=== PATIENT | male | born 1950 | race Asian ===

== ENCOUNTER 2020-04-09 14:58 | Observation (INO) | payer OTHER ==
[2020-04-09 15:25] VITALS: BMI 33.9
[2020-04-09] MEDS ORDERED: ASPIRIN 325 MG TABLET PO ONE (16:06)
[2020-04-09 16:09] LABS: BASO % 0.4 % (0-2.0); EOS % 0.3 % (0-4.5); HEMATOCRIT 42.3 % (35.4-49); HEMOGLOBIN 14.1 GM/dL (11.7-16.9); LYMPH % 13.5 % (8-40); MCH 28.7 pg (25.7-33.7); MCHC 33.4 g/dl (32.0-35.9); MEAN CELL VOLUME 85.8 fl (80-96); MEAN PLT VOLUME 9.6 fl (7.5-11.1); MONO % 6.9 % (3.8-10.2); NEUT % 78.9 % (42.8-82.8); PLATELET COUNT 290 K/MM3 (134-434); RBC 4.93 M/mm3 (4.00-5.60); RDW 13.8 % (11.9-15.9); WHITE BLOOD COUNT 11.2 K/mm3 (4.0-10.0)
[2020-04-09] MEDS ORDERED: ASPIRIN 81 MG CHEWABLE TABLETS ONE (16:15)
[2020-04-09 16:26] LABS: CHLORIDE 106 mmol/L (98-107); SODIUM 134 mmol/L (136-145)
[2020-04-09 16:29] LABS: ALBUMIN 3.7 g/dl (3.4-5.0); BLOOD UREA NITROGEN 18.5 mg/dL (7-18); CO2 25 mmol/L (21-32); GLUCOSE,RANDOM 81 mg/dL (74-106); MAGNESIUM 2.3 mg/dL (1.8-2.4)
[2020-04-09 16:32] LABS: CREATININE 1.3 mg/dL (0.55-1.3)
[2020-04-09 16:33] LABS: BILIRUBIN,TOTAL 0.6 mg/dL (0.2-1)
[2020-04-09 16:35] LABS: ALK PHOS 56 U/L (45-117); TOT PROT 8.4 g/dl (6.4-8.2)
[2020-04-09 16:37] LABS: N-TERMINAL BNP 70.6 pg/ml (5-125)
[2020-04-09 17:03] LABS: ANION GAP 3 MMOL/L (8-16); SGOT/AST 110 U/L (15-37); SGPT/ALT 52 U/L (13-61)
[2020-04-09 17:05] LABS: PH,URINE 6.5 (5.0-8.0); URINE APPEARANCE Clear; URINE BILIRUBIN Negative (NEGATIVE); URINE COLOR Yellow; URINE GLUCOSE (UA) Negative (NEGATIVE); URINE KETONE 1+ (NEGATIVE); URINE LEUK ESTERASE Negative (NEGATIVE); URINE NITRITE Negative (NEGATIVE); URINE PROTEIN Negative (NEGATIVE); URINE UROBILINOGEN 0.2 mg/dL (0.2-1.0)
[2020-04-09 17:19] LABS: POTASSIUM 9.5 mmol/L (3.5-5.1)
[2020-04-09] MEDS ORDERED: amLODIPine BESYLATE 5 MG TABLET (FP) PO ONE (17:41)
[2020-04-09] MEDS ORDERED: METOPROLOL TARTRATE 5 MG/5 ML VIAL IVPUSH ONE (17:42)
[2020-04-09] MEDS ORDERED: amLODIPine BESYLATE 5 MG TABLET (FP) ONE ×2 (17:59→22:18)
[2020-04-09] MEDS ORDERED: METOPROLOL TARTRATE 5 MG/5 ML VIAL ONE (18:00)
[2020-04-09 18:44] LABS: POTASSIUM 3.9 mmol/L (3.5-5.1)
[2020-04-09 18:49] LABS: BLOOD UREA NITROGEN 18.3 mg/dL (7-18); CALCIUM 9.4 mg/dL (8.5-10.1)
[2020-04-09 18:50] LABS: ALBUMIN 3.9 g/dl (3.4-5.0)
[2020-04-09 18:53] LABS: CREATININE 1.1 mg/dL (0.55-1.3)
[2020-04-09 18:54] LABS: BILIRUBIN,TOTAL 0.8 mg/dL (0.2-1); TOT PROT 7.6 g/dl (6.4-8.2)
[2020-04-09 19:07] LABS: HYALINE CASTS 0.12 /uL (0-3.1); URINE BACTERIA 817.1 /uL (0-1359); URINE RBC 6.4 /uL (0-23.9); URINE WBC 1.5 /uL (0-25.8)
[2020-04-09 20:11] LABS: CHLORIDE 104 mmol/L (98-107); POTASSIUM 3.8 mmol/L (3.5-5.1); SODIUM 138 mmol/L (136-145)
[2020-04-09 20:15] LABS: ANION GAP 6 MMOL/L (8-16); BLOOD UREA NITROGEN 17.5 mg/dL (7-18); CO2 28 mmol/L (21-32); GLUCOSE,RANDOM 90 mg/dL (74-106)
[2020-04-09 20:17] LABS: CREATININE 1.1 mg/dL (0.55-1.3); SGOT/AST 16 U/L (15-37); SGPT/ALT 34 U/L (13-61)
[2020-04-09 20:18] LABS: BILIRUBIN,TOTAL 0.5 mg/dL (0.2-1); TOT PROT 7.6 g/dl (6.4-8.2)
[2020-04-09 20:20] LABS: ALK PHOS 57 U/L (45-117)
[2020-04-09] MEDS ORDERED: amLODIPine BESYLATE 5 MG TABLET (FP) PO SCH (22:00)
[2020-04-10 05:49] VITALS: TEMP 98.7
[2020-04-10 08:25] LABS: BASO % 0.3 % (0-2.0); EOS % 0.9 % (0-4.5); HEMATOCRIT 45.5 % (35.4-49); HEMOGLOBIN 15.2 GM/dL (11.7-16.9); LYMPH % 19.6 % (8-40); MCH 28.9 pg (25.7-33.7); MCHC 33.4 g/dl (32.0-35.9); MEAN CELL VOLUME 86.6 fl (80-96); NEUT % 71.2 % (42.8-82.8); PLATELET COUNT 281 K/MM3 (134-434); RBC 5.25 M/mm3 (4.00-5.60); RDW 13.4 % (11.9-15.9); WHITE BLOOD COUNT 10.3 K/mm3 (4.0-10.0)
[2020-04-10] MEDS ORDERED: TAMSULOSIN HCL 0.4 MG CAP PO SCH (08:30)
[2020-04-10 08:53] LABS: POTASSIUM 3.9 mmol/L (3.5-5.1)
[2020-04-10 08:55] LABS: CALCIUM 9.3 mg/dL (8.5-10.1)
[2020-04-10 08:56] LABS: ALBUMIN 4.2 g/dl (3.4-5.0); BLOOD UREA NITROGEN 18.3 mg/dL (7-18)
[2020-04-10 08:58] LABS: MAGNESIUM 2.2 mg/dL (1.8-2.4)
[2020-04-10 08:59] LABS: CREATININE 1.2 mg/dL (0.55-1.3); PHOSPHOROUS 3.6 mg/dL (2.5-4.9)
[2020-04-10 09:01] LABS: BILIRUBIN,TOTAL 0.9 mg/dL (0.2-1); TOT PROT 7.9 g/dl (6.4-8.2)
[2020-04-10] MEDS ORDERED: LOSARTAN POTASSIUM 50 MG TABLET PO SCH (10:00)
[2020-04-10] MEDS ORDERED: BACITRACIN/POLYMYXIN B SULFATE 15 GM TUBE TP SCH (10:00)
[2020-04-10] MEDS ORDERED: ENOXAPARIN NA (PORCINE) 40 MG/0.4 ML DISP.SYRIN SQ SCH (10:00)
[2020-04-10] MEDS ORDERED: REGADENOSON 0.4 MG/5 ML PRE-FILLED SYRINGE IVPUSH ONE ×2 (10:15→10:32)
[2020-04-10 14:58] VITALS: BP 140/91; PULSE 99
== END 2020-04-10 16:00 | disposition home or self-care (01) ==
LOC: JER 14:58 → JERBED 16:01 → J6WEST-2 23:32
PROVIDERS: ATTEND Student in an Organized Health Care Education/Training Program
PROC: 3E023GC Introduction of Other Therapeutic Substance into Muscle, Percutaneous Approach (ICD-10-PCS; principal; 2020-04-09)
PROC: 3E033GC Introduction of Other Therapeutic Substance into Peripheral Vein, Percutaneous Approach (ICD-10-PCS; 2020-04-09)
DX: I11.0 Hypertensive heart disease with heart failure (principal); R07.9 Chest pain, unspecified; N40.0 Benign prostatic hyperplasia without lower urinary tract symptoms; Z88.0 Allergy status to penicillin; E66.9 Obesity, unspecified; Z68.33 Body mass index [BMI] 33.0-33.9, adult; I50.30 Unspecified diastolic (congestive) heart failure; Z29.9 Encounter for prophylactic measures, unspecified; Z79.01 Long term (current) use of anticoagulants; E78.5 Hyperlipidemia, unspecified
CPT/HCPCS: 36415; 71045-TC-FY; 78452-TC; 80053; 81003; 82550; 82553; 83735; 83880; 84100; 84484; 85025; 87086; 93005; 93010; 93017; 93306-TC; 96372; 96374; 99285-25; A9502; C9803; G0378; J2785; U0003

== ENCOUNTER 2021-11-04 01:13 | Emergency (ER) | payer OTHER ==
[2021-11-04 01:34] VITALS: BP 117/66; PULSE 108; RESP 20; TEMP 98.4; BMI 34.9
[2021-11-04 03:22] LABS: BASO % 0.3 % (0-2.0); EOS % 0.7 % (0-4.5); HEMATOCRIT 41.6 % (35.4-49); HEMOGLOBIN 14.1 GM/dL (11.7-16.9); LYMPH % 10.5 % (8-40); MCH 28.9 pg (25.7-33.7); MCHC 33.8 g/dl (32.0-35.9); MEAN CELL VOLUME 85.5 fl (80-96); MEAN PLT VOLUME 8.8 fl (7.5-11.1); MONO % 8.4 % (3.8-10.2); NEUT % 80.1 % (42.8-82.8); PH,URINE 6.5 (5.0-8.0); PLATELET COUNT 219 10^3/uL (134-434); RBC 4.87 M/mm3 (4.00-5.60); URINE APPEARANCE CLEAR; URINE BILIRUBIN NEGATIVE (NEGATIVE); URINE COLOR YELLOW; URINE GLUCOSE (UA) NEGATIVE (NEGATIVE); URINE KETONE NEGATIVE (NEGATIVE); URINE LEUK ESTERASE NEGATIVE (NEGATIVE); URINE NITRITE NEGATIVE (NEGATIVE); URINE PROTEIN NEGATIVE (NEGATIVE); URINE UROBILINOGEN 0.2 mg/dL (0.2-1.0); WHITE BLOOD COUNT 11.2 K/mm3 (4.0-10.0)
[2021-11-04 03:41] LABS: CALCIUM 9.4 mg/dL (8.5-10.1)
[2021-11-04 03:42] LABS: ALBUMIN 3.8 g/dl (3.4-5.0)
[2021-11-04 03:45] LABS: CREATININE 1.3 mg/dL (0.55-1.3)
[2021-11-04 03:46] LABS: BILIRUBIN,TOTAL 0.5 mg/dL (0.2-1); TOT PROT 7.2 g/dl (6.4-8.2)
== END 2021-11-04 04:20 | disposition home or self-care (01) ==
LOC: JER 01:13
DX: R33.9 Retention of urine, unspecified (principal)
CPT/HCPCS: 36415; 80053; 81003; 85025; 87086; 99283-25

== ENCOUNTER 2021-11-09 07:40 | Emergency (ER) | payer OTHER ==
[2021-11-09 08:22] VITALS: BMI 34.9
[2021-11-09 09:27] LABS: BASO % 0.3 % (0-2.0); EOS % 0.3 % (0-4.5); HEMATOCRIT 41.6 % (35.4-49); HEMOGLOBIN 14.1 GM/dL (11.7-16.9); LYMPH % 6.3 % (8-40); MCH 28.5 pg (25.7-33.7); MCHC 33.9 g/dl (32.0-35.9); MEAN PLT VOLUME 8.7 fl (7.5-11.1); MONO % 6.4 % (3.8-10.2); NEUT % 86.7 % (42.8-82.8); PLATELET COUNT 249 10^3/uL (134-434); RBC 4.95 M/mm3 (4.00-5.60); RDW 13.6 % (11.9-15.9); WHITE BLOOD COUNT 14.9 K/mm3 (4.0-10.0)
[2021-11-09 09:30] VITALS: RESP 16
[2021-11-09 09:55] LABS: CALCIUM 9.3 mg/dL (8.5-10.1)
[2021-11-09 09:59] LABS: CREATININE 1.2 mg/dL (0.55-1.3)
[2021-11-09 10:00] LABS: BILIRUBIN,TOTAL 0.8 mg/dL (0.2-1); TOT PROT 7.3 g/dl (6.4-8.2)
[2021-11-09] MEDS ORDERED: GENTAMICIN INJECTION 80 MG in DEXTROSE 5%-WATER - 250 ML IVPB SCH (11:45)
[2021-11-09] MEDS ORDERED: GENTAMICIN 80 MG PREMIXED IVPB 80 MG/100 ML BAG IVPB ONE (11:54)
[2021-11-09] MEDS ORDERED: GENTAMICIN 80 MG PREMIXED IVPB 80 MG/100 ML BAG IVPB SCH (12:08)
[2021-11-09 13:08] VITALS: BP 148/77; PULSE 84; TEMP 98.6
== END 2021-11-09 13:09 | disposition home or self-care (01) ==
LOC: JER 07:40
PROC: 3E033GC Introduction of Other Therapeutic Substance into Peripheral Vein, Percutaneous Approach (ICD-10-PCS; principal; 2021-11-09)
DX: T83.098A Other mechanical complication of other urinary catheter, initial encounter (principal)
CPT/HCPCS: 36415; 80053; 85025; 86850; 86900; 86901; 99284-25

== ENCOUNTER 2021-11-13 16:40 | Observation (INO) | payer OTHER ==
[2021-11-13 16:46] VITALS: BMI 35.7
[2021-11-13 18:13] LABS: BASO % 0.5 % (0-2.0); EOS % 1.5 % (0-4.5); HEMATOCRIT 40.5 % (35.4-49); HEMOGLOBIN 13.8 GM/dL (11.7-16.9); LYMPH % 16.7 % (8-40); MCHC 34.2 g/dl (32.0-35.9); MEAN CELL VOLUME 84.8 fl (80-96); MEAN PLT VOLUME 8.8 fl (7.5-11.1); MONO % 9.2 % (3.8-10.2); NEUT % 72.1 % (42.8-82.8); PLATELET COUNT 278 10^3/uL (134-434); RBC 4.77 M/mm3 (4.00-5.60); RDW 13.4 % (11.9-15.9); WHITE BLOOD COUNT 9.3 K/mm3 (4.0-10.0)
[2021-11-13 18:31] LABS: ACTIVATED PTT 30.1 SECONDS (25.2-36.5); BLOOD UREA NITROGEN 16.6 mg/dL (7-18); CALCIUM 9.7 mg/dL (8.5-10.1); INR 1.07 (0.83-1.09); PROTHROMBIN TIME (PATIENT) 12.3 SEC (9.7-13.0)
[2021-11-13 18:32] LABS: MAGNESIUM 2.1 mg/dL (1.8-2.4)
[2021-11-13 18:35] LABS: CREATININE 1.1 mg/dL (0.55-1.3)
[2021-11-13 18:36] LABS: BILIRUBIN,TOTAL 0.3 mg/dL (0.2-1); TOT PROT 7.4 g/dl (6.4-8.2)
[2021-11-13 20:19] LABS: PH,URINE 6.5 (5.0-8.0); URINE APPEARANCE CLEAR; URINE BILIRUBIN NEGATIVE (NEGATIVE); URINE COLOR YELLOW; URINE GLUCOSE (UA) NEGATIVE (NEGATIVE); URINE KETONE NEGATIVE (NEGATIVE); URINE LEUK ESTERASE NEGATIVE (NEGATIVE); URINE NITRITE NEGATIVE (NEGATIVE); URINE PROTEIN NEGATIVE (NEGATIVE); URINE UROBILINOGEN 0.2 mg/dL (0.2-1.0)
[2021-11-13] MEDS ORDERED: hydrALAZINE HCL 25 MG TABLET (FP) PO ONE (21:06)
[2021-11-13] MEDS ORDERED: hydrALAZINE HCL 25 MG TABLET (FP) ONE (21:35)
[2021-11-13] MEDS: FINASTERIDE 5 MG TABLET (FP) PO SCH (21:36)
[2021-11-13] MEDS ORDERED: ACETAMINOPHEN 325 MG TABLET (FP) PO PRN (21:49)
[2021-11-13] MEDS ORDERED: MELATONIN 5 MG TABLETS PO PRN (21:49)
[2021-11-13 23:01] LABS: METHADONE, UR NEGATIVE (NEGATIVE); PHENCYCLIDINE,URINE NEGATIVE (NEGATIVE); URINE BARBITURATES NEGATIVE (NEGATIVE); URINE BENZODIAZEPINES NEGATIVE (NEGATIVE)
[2021-11-13 23:02] LABS: COCAINE, UR NEGATIVE (NEGATIVE)
[2021-11-13 23:07] LABS: OPIATES, URI NEGATIVE (NEGATIVE); URINE AMPHETAMINES NEGATIVE (NEGATIVE)
[2021-11-14] MEDS ORDERED: hydrALAZINE HCL 20 MG/ML VIAL IVPUSH ONE (00:36)
[2021-11-14] MEDS ORDERED: HYDROCHLOROTHIAZIDE 25 MG TABLET (FP) ONE (05:23)
[2021-11-14] MEDS ORDERED: VALSARTAN 80 MG TABLET ONE (05:24)
[2021-11-14] MEDS ORDERED: hydrALAZINE HCL 10 MG TABLET ONE ×3 (05:24→21:50)
[2021-11-14] MEDS: hydrALAZINE HCL 10 MG TABLET PO SCH ×3 (06:25→21:51)
[2021-11-14] MEDS: VALSARTAN 160 MG TABLET PO SCH (06:26)
[2021-11-14] MEDS: HYDROCHLOROTHIAZIDE 25 MG TABLET (FP) PO SCH (06:26)
[2021-11-14] MEDS ORDERED: PATIENT'S OWN MEDICATION (NON-FORMULARY) (Valsartan/Hydrochlorothiazide [Valsartan-Hctz 32 PO SCH (07:00)
[2021-11-14 07:35] LABS: HEMATOCRIT 44.2 % (35.4-49); HEMOGLOBIN 14.8 GM/dL (11.7-16.9); MCH 28.4 pg (25.7-33.7); MCHC 33.5 g/dl (32.0-35.9); MEAN CELL VOLUME 84.7 fl (80-96); MEAN PLT VOLUME 8.9 fl (7.5-11.1); PLATELET COUNT 312 10^3/uL (134-434); RBC 5.22 M/mm3 (4.00-5.60); RDW 13.6 % (11.9-15.9); WHITE BLOOD COUNT 9.7 K/mm3 (4.0-10.0)
[2021-11-14 07:52] LABS: CALCIUM 9.5 mg/dL (8.5-10.1)
[2021-11-14 07:53] LABS: BLOOD UREA NITROGEN 12.6 mg/dL (7-18); MAGNESIUM 2.1 mg/dL (1.8-2.4)
[2021-11-14 07:56] LABS: CREATININE 1.1 mg/dL (0.55-1.3); PHOSPHOROUS 3.3 mg/dL (2.5-4.9)
[2021-11-14 07:57] LABS: BILIRUBIN,TOTAL 0.6 mg/dL (0.2-1); TOT PROT 7.4 g/dl (6.4-8.2)
[2021-11-14] MEDS ORDERED: TAMSULOSIN HCL 0.4 MG CAP ONE (08:54)
[2021-11-14] MEDS: TAMSULOSIN HCL 0.4 MG CAP PO SCH (08:55)
[2021-11-14] MEDS ORDERED: POLYETHYLENE GLYCOL (HEALTHYLAX) 3350 17 GM PACKET ONE (10:45)
[2021-11-14] MEDS ORDERED: ASPIRIN COATED 81 MG TABLET.EC ONE (10:45)
[2021-11-14] MEDS ORDERED: ENOXAPARIN NA (PORCINE) 40 MG/0.4 ML DISP.SYRIN SQ ONE (10:45)
[2021-11-14] MEDS: ASPIRIN COATED 81 MG TABLET.EC PO SCH (10:50)
[2021-11-14] MEDS: ENOXAPARIN NA (PORCINE) 40 MG/0.4 ML DISP.SYRIN SQ SCH (10:50)
[2021-11-14] MEDS: POLYETHYLENE GLYCOL (HEALTHYLAX) 3350 17 GM PACKET PO SCH (10:50)
[2021-11-14] MEDS: FINASTERIDE 5 MG TABLET (FP) PO SCH (21:51)
[2021-11-15 01:17] VITALS: TEMP 97.9
[2021-11-15] MEDS ORDERED: hydrALAZINE HCL 10 MG TABLET ONE ×2 (06:03→14:30)
[2021-11-15] MEDS ORDERED: HYDROCHLOROTHIAZIDE 25 MG TABLET (FP) ONE (06:03)
[2021-11-15] MEDS ORDERED: VALSARTAN 80 MG TABLET ONE (06:04)
[2021-11-15] MEDS: hydrALAZINE HCL 10 MG TABLET PO SCH ×2 (06:04→14:35)
[2021-11-15] MEDS: VALSARTAN 160 MG TABLET PO SCH (06:05)
[2021-11-15] MEDS: HYDROCHLOROTHIAZIDE 25 MG TABLET (FP) PO SCH (06:06)
[2021-11-15 07:49] VITALS: RESP 18
[2021-11-15] MEDS ORDERED: TAMSULOSIN HCL 0.4 MG CAP ONE (08:01)
[2021-11-15] MEDS ORDERED: POLYETHYLENE GLYCOL (HEALTHYLAX) 3350 17 GM PACKET ONE (08:01)
[2021-11-15] MEDS ORDERED: ENOXAPARIN NA (PORCINE) 40 MG/0.4 ML DISP.SYRIN SQ ONE (08:01)
[2021-11-15] MEDS ORDERED: ASPIRIN 81 MG CHEWABLE TABLETS ONE (08:01)
[2021-11-15] MEDS: TAMSULOSIN HCL 0.4 MG CAP PO SCH (08:20)
[2021-11-15] MEDS: POLYETHYLENE GLYCOL (HEALTHYLAX) 3350 17 GM PACKET PO SCH (09:39)
[2021-11-15] MEDS: ASPIRIN COATED 81 MG TABLET.EC PO SCH (09:39)
[2021-11-15] MEDS: ENOXAPARIN NA (PORCINE) 40 MG/0.4 ML DISP.SYRIN SQ SCH (09:39)
[2021-11-15 15:01] VITALS: BP 171/84; PULSE 88
== END 2021-11-15 14:40 | disposition home or self-care (01) ==
LOC: JER 16:40 → JERBED 19:14
PROVIDERS: ADMIT Internal Medicine; ATTEND Internal Medicine
PROC: 3E033GC Introduction of Other Therapeutic Substance into Peripheral Vein, Percutaneous Approach (ICD-10-PCS; principal; 2021-11-13)
PROC: 3E013GC Introduction of Other Therapeutic Substance into Subcutaneous Tissue, Percutaneous Approach (ICD-10-PCS; 2021-11-13)
DX: I49.9 Cardiac arrhythmia, unspecified (principal); I16.0 Hypertensive urgency; I10 Essential (primary) hypertension; I49.3 Ventricular premature depolarization; N40.0 Benign prostatic hyperplasia without lower urinary tract symptoms; E66.9 Obesity, unspecified; Z68.35 Body mass index [BMI] 35.0-35.9, adult; Z88.0 Allergy status to penicillin
CPT/HCPCS: 36415; 70450-TC; 71045-TC-FY; 80053; 80307; 81003; 83735; 84100; 84443; 84484; 85025; 85027; 85610; 85730; 93005; 93010; 93971-TC; 96372; 96374; 99285-25; C9803-CS; G0378; U0003; U0005

== ENCOUNTER 2021-11-16 00:36 | Observation (INO) | payer OTHER ==
[2021-11-16 00:46] VITALS: BMI 34.9
[2021-11-16 02:56] LABS: BASO % 0.3 % (0-2.0); EOS % 0.7 % (0-4.5); HEMATOCRIT 43.6 % (35.4-49); HEMOGLOBIN 14.6 GM/dL (11.7-16.9); LYMPH % 16.6 % (8-40); MCH 28.3 pg (25.7-33.7); MCHC 33.5 g/dl (32.0-35.9); MEAN CELL VOLUME 84.5 fl (80-96); MONO % 8.4 % (3.8-10.2); PLATELET COUNT 296 10^3/uL (134-434); RBC 5.16 M/mm3 (4.00-5.60); RDW 13.6 % (11.9-15.9); WHITE BLOOD COUNT 10.4 K/mm3 (4.0-10.0)
[2021-11-16 03:09] LABS: BLOOD UREA NITROGEN 18.2 mg/dL (7-18); CALCIUM 9.3 mg/dL (8.5-10.1)
[2021-11-16 03:10] LABS: ALBUMIN 3.8 g/dl (3.4-5.0)
[2021-11-16 03:13] LABS: CREATININE 1.2 mg/dL (0.55-1.3)
[2021-11-16 03:14] LABS: BILIRUBIN,TOTAL 0.7 mg/dL (0.2-1); TOT PROT 7.4 g/dl (6.4-8.2)
[2021-11-16 06:00] LABS: BLOOD UREA NITROGEN 17.7 mg/dL (7-18); CALCIUM 9.2 mg/dL (8.5-10.1)
[2021-11-16 06:04] LABS: CREATININE 1.1 mg/dL (0.55-1.3)
[2021-11-16] MEDS ORDERED: hydrALAZINE HCL 50 MG TABLET (FP) PO ONE (06:16)
[2021-11-16] MEDS ORDERED: HYDROCHLOROTHIAZIDE 12.5 MG CAPSULE (FP) PO SCH (07:00)
[2021-11-16] MEDS: ENOXAPARIN NA (PORCINE) 40 MG/0.4 ML DISP.SYRIN SQ SCH (09:24)
[2021-11-16] MEDS: TAMSULOSIN HCL 0.4 MG CAP PO SCH (09:25)
[2021-11-16 11:07] LABS: ALBUMIN 3.8 g/dl (3.4-5.0); MAGNESIUM 2.1 mg/dL (1.8-2.4)
[2021-11-16 11:11] LABS: PHOSPHOROUS 3.9 mg/dL (2.5-4.9)
[2021-11-16 11:12] LABS: BILIRUBIN,TOTAL 0.6 mg/dL (0.2-1)
[2021-11-16] MEDS: hydrALAZINE HCL 50 MG TABLET (FP) PO SCH ×2 (15:25→21:06)
[2021-11-16] MEDS: LOSARTAN 50MG/HCTZ 12.5MG 1 TAB PO SCH (19:41)
[2021-11-17] MEDS: hydrALAZINE HCL 50 MG TABLET (FP) PO SCH ×3 (06:20→21:10)
[2021-11-17 09:00] LABS: HEMATOCRIT 42.9 % (35.4-49); HEMOGLOBIN 14.7 GM/dL (11.7-16.9); MCH 29.3 pg (25.7-33.7); MCHC 34.4 g/dl (32.0-35.9); MEAN CELL VOLUME 85.2 fl (80-96); MEAN PLT VOLUME 8.8 fl (7.5-11.1); PLATELET COUNT 284 10^3/uL (134-434); RBC 5.03 M/mm3 (4.00-5.60); RDW 13.6 % (11.9-15.9); WHITE BLOOD COUNT 9.1 K/mm3 (4.0-10.0)
[2021-11-17 09:22] LABS: CALCIUM 9.3 mg/dL (8.5-10.1)
[2021-11-17 09:23] LABS: BLOOD UREA NITROGEN 13.6 mg/dL (7-18); MAGNESIUM 2.2 mg/dL (1.8-2.4)
[2021-11-17 09:26] LABS: CREATININE 1.1 mg/dL (0.55-1.3)
[2021-11-17] MEDS: TAMSULOSIN HCL 0.4 MG CAP PO SCH (10:32)
[2021-11-17] MEDS: LOSARTAN 50MG/HCTZ 12.5MG 1 TAB PO SCH (10:32)
[2021-11-17] MEDS: ENOXAPARIN NA (PORCINE) 40 MG/0.4 ML DISP.SYRIN SQ SCH (10:32)
[2021-11-18] MEDS ORDERED: LOSARTAN POTASSIUM 25 MG TABLET PO ONE (01:00)
[2021-11-18] MEDS: hydrALAZINE HCL 50 MG TABLET (FP) PO SCH (05:59)
[2021-11-18 09:14] VITALS: BP 158/94; PULSE 76; RESP 18; TEMP 98.9
[2021-11-18] MEDS: ENOXAPARIN NA (PORCINE) 40 MG/0.4 ML DISP.SYRIN SQ SCH (09:15)
[2021-11-18] MEDS: TAMSULOSIN HCL 0.4 MG CAP PO SCH (09:15)
[2021-11-18] MEDS: LOSARTAN 50MG/HCTZ 12.5MG 1 TAB PO SCH (09:15)
== END 2021-11-18 11:08 | disposition home or self-care (01) ==
LOC: JER 00:36 → UNDOADMOB 01:23 → INTOOBSV 01:23 → JERBED 01:23 → J4S 05:39
PROVIDERS: ADMIT Internal Medicine
PROC: 3E023GC Introduction of Other Therapeutic Substance into Muscle, Percutaneous Approach (ICD-10-PCS; principal; 2021-11-16)
DX: R00.1 Bradycardia, unspecified (principal); N40.0 Benign prostatic hyperplasia without lower urinary tract symptoms; I10 Essential (primary) hypertension; R42 Dizziness and giddiness; E78.5 Hyperlipidemia, unspecified
CPT/HCPCS: 36415; 71046-TC-FY; 80048; 80053; 83735; 84100; 84484; 85025; 85027; 93005; 93010; 96372; 97116-GP; 97161-GP; 99285-25; C9803-CS; G0378; U0003; U0005

== ENCOUNTER 2021-12-27 19:27 | Emergency (ER) | payer OTHER ==
[2021-12-27 19:33] VITALS: PULSE 68; RESP 20; TEMP 97.7; BMI 31.4
[2021-12-27] MEDS ORDERED: LIDOCAINE HCL 2% JELLY 11 ML TP ONE (20:38)
[2021-12-27 21:10] LABS: EPI CELLS >36 /uL (0-25.1); HYALINE CASTS 3 /uL (0-3.1); URINE APPEARANCE CLOUDY; URINE BILIRUBIN NEGATIVE (NEGATIVE); URINE COLOR YELLOW; URINE GLUCOSE (UA) NEGATIVE (NEGATIVE); URINE KETONE NEGATIVE (NEGATIVE); URINE LEUK ESTERASE 3+ (NEGATIVE); URINE NITRITE POSITIVE (NEGATIVE); URINE PROTEIN 2+ (NEGATIVE); URINE RBC 238 /uL (0-23.9); URINE UROBILINOGEN 0.2 mg/dL (0.2-1.0); URINE WBC 379 /uL (0-25.8)
[2021-12-27 21:54] VITALS: BP 140/82
[2021-12-27 22:03] LABS: URINE BACTERIA 11.4 /uL (0-1359)
== END 2021-12-27 21:56 | disposition home or self-care (01) ==
LOC: JER 19:27
DX: R33.9 Retention of urine, unspecified (principal)
CPT/HCPCS: 81003; 87086; 99283-25

== ENCOUNTER 2022-08-09 20:56 | Emergency (ER) | payer OTHER ==
[2022-08-09 21:01] VITALS: TEMP 98.4; BMI 30.7
[2022-08-09 22:19] LABS: EPI CELLS 6 /uL (0-25.1); HYALINE CASTS 0 /uL (0-3.1); PH,URINE 5.5 (5.0-8.0); URINE APPEARANCE CLEAR; URINE BACTERIA 3 /uL (0-1359); URINE BILIRUBIN NEGATIVE (NEGATIVE); URINE COLOR YELLOW; URINE GLUCOSE (UA) NEGATIVE (NEGATIVE); URINE KETONE NEGATIVE (NEGATIVE); URINE LEUK ESTERASE NEGATIVE (NEGATIVE); URINE NITRITE NEGATIVE (NEGATIVE); URINE PROTEIN NEGATIVE (NEGATIVE); URINE RBC 1464 /uL (0-23.9); URINE UROBILINOGEN 0.2 mg/dL (0.2-1.0); URINE WBC 8 /uL (0-25.8)
[2022-08-09 22:52] VITALS: BP 171/91; PULSE 63; RESP 16
== END 2022-08-09 22:53 | disposition home or self-care (01) ==
LOC: JER 20:56
PROC: 0T9B70Z Drainage of Bladder with Drainage Device, Via Natural or Artificial Opening (ICD-10-PCS; principal; 2022-08-09)
DX: R33.9 Retention of urine, unspecified (principal); R39.198 Other difficulties with micturition
CPT/HCPCS: 76856-TC; 81003; 87086; 99284-25

== ENCOUNTER 2023-12-18 04:41 | Day surgery (SDC) | payer OTHER ==
[2023-12-06 11:47] VITALS: BMI 33.2
[2023-12-18 09:27] VITALS: TEMP 98.2
[2023-12-18 09:50] VITALS: RESP 18
[2023-12-18 11:20] VITALS: BP 128/69; PULSE 75
== END 2023-12-18 10:02 | disposition home or self-care (01) ==
LOC: JASU-ENDO 04:41
PROVIDERS: ATTEND Internal Medicine Gastroenterology
PROC: 0DBN8ZX Excision of Sigmoid Colon, Via Natural or Artificial Opening Endoscopic, Diagnostic (ICD-10-PCS; 2023-12-18)
PROC: 0DBP8ZX Excision of Rectum, Via Natural or Artificial Opening Endoscopic, Diagnostic (ICD-10-PCS; 2023-12-18)
PROC: 0DBH8ZX Excision of Cecum, Via Natural or Artificial Opening Endoscopic, Diagnostic (ICD-10-PCS; principal; 2023-12-18 09:00)
DX: Z12.11 Encounter for screening for malignant neoplasm of colon (principal); D12.0 Benign neoplasm of cecum; D12.5 Benign neoplasm of sigmoid colon; D12.8 Benign neoplasm of rectum; K64.8 Other hemorrhoids
CPT/HCPCS: 88305-TC

== ENCOUNTER 2024-02-19 04:08 | Day surgery (SDC) | payer OTHER ==
[2024-02-19 09:12] VITALS: BMI 32.3
[2024-02-19] MEDS ORDERED: BUPIVACAINE HCL/PF 0.5% (5MG/ML) 10 ML VIAL ONE (11:41)
[2024-02-19] MEDS ORDERED: PROPOFOL 20 ML ONE (11:42)
[2024-02-19] MEDS ORDERED: MIDAZOLAM HCL 2 MG/2 ML SINGLE DOSE VIAL ONE (11:42)
[2024-02-19] MEDS ORDERED: LIDOCAINE HCL 1%, 10 MG/ML (20ML VIAL) ONE (11:59)
[2024-02-19] MEDS: CLINDAMYCIN 900 MG PREMIX BAG IVPB ONE (12:00)
[2024-02-19] MEDS ORDERED: CLINDAMYCIN PHOSPHATE 600 MG/4 ML VIAL ONE (12:02)
[2024-02-19] MEDS: BUPIVACAINE HCL/PF 0.5% (5 MG/ML) 30 ML VIAL IJ ONE (12:06)
[2024-02-19] MEDS: LIDOCAINE HCL 1% PRESERVATIVE FREE - 30ML VIAL IJ ONE (12:06)
[2024-02-19] MEDS ORDERED: ONDANSETRON 4 MG/2 ML VIAL ONE (12:06)
[2024-02-19] MEDS ORDERED: DEXAMETHASONE SOD PHOSPHATE 4 MG/1 ML VIAL ONE (12:06)
[2024-02-19] MEDS ORDERED: KETOROLAC TROMETHAMINE 30 MG/1 ML VIAL ONE (12:31)
[2024-02-19] MEDS ORDERED: BACITRACIN ZINC 15 GM TUBE TOPICAL OINTMENT ONE (12:33)
[2024-02-19] MEDS: LACTATED RINGERS SOLUTION 1,000 ML IV SCH (12:46)
[2024-02-19] MEDS ORDERED: oxyCODONE HCL 5 MG TABLET PO PRN (12:52)
[2024-02-19 15:47] VITALS: BP 150/90; PULSE 86; RESP 16; TEMP 97.6
== END 2024-02-19 15:59 | disposition home or self-care (01) ==
LOC: JASU-SURG 04:08
PROVIDERS: ATTEND Urology
PROC: 0VB60ZZ Excision of Right Tunica Vaginalis, Open Approach (ICD-10-PCS; principal; 2024-02-19 11:00)
DX: N43.3 Hydrocele, unspecified (principal)
CPT/HCPCS: 94760